=== PATIENT | male | born 1970 | race Caucasian/White ===

== ENCOUNTER → 2017-01-23 | Outpatient (CLI) | payer OTHER ==
[~2017-01-23] MED LIST: CIPRO500 MG PO; FLAGYL500 MG PO; NOHOMEMEDS; PERCOCET 5/31 TABLET PO; TYLENOL WITH C1 EACH PO; ZOFRAN4 MG PO
== END | disposition home or self-care (01) ==
LOC: NUC 07:30
DX: R94.5 Abnormal results of liver function studies (principal); Z79.899 Other long term (current) drug therapy; R19.4 Change in bowel habit
CPT/HCPCS: 78227; A9537; J2805